=== PATIENT | female | born 2000 | race Caucasian/White ===

== ENCOUNTER 2024-12-17 12:56 | Emergency (ER) | payer OTHER ==
[~2024-12-17] VITALS: Ht 154.9 cm; Wt 52.3 kg
[2024-12-17] MEDS: ACETAMINOPHEN 325 MG TAB PO ONE (13:23)
[2024-12-17 13:39] LABS: BASO % 0.2 % (0.0-1.0); EOS % 0.2 % (0.0-3.0); HEMOGLOBIN 12.2 g/dl (12.0-15.5); LYMPH # 0.6 10^3/uL (1.5-5.0); LYMPH % 9.2 % (24.0-44.0); MEAN CORPUSCULAR HEMOGLOBIN 28.7 pg (27.0-33.0); MEAN CORPUSCULAR HGB CONC 33.9 g/dl (32.0-36.5); MEAN CORPUSCULAR VOLUME 84.7 fl (80.0-96.0); MONO # 0.4 10^3/uL (0.0-0.8); MONO % 5.6 % (2.0-8.0); NEUTROPHILS # 5.6 10^3/uL (1.5-8.5); PLATELET COUNT, AUTOMATED 214 10^3/uL (150-450); RED BLOOD COUNT 4.25 10^6/uL (4.00-5.40); WHITE BLOOD COUNT 6.7 10^3/uL (4.0-10.0)
[2024-12-17 14:05] LABS: CK-MB VALUE MASS < 1.0 NG/ML (<3.6)
[2024-12-17 14:08] LABS: ALBUMIN 3.5 G/DL (3.2-5.2); ALKALINE PHOSPHATASE 45 U/L (35-104); ALT/SGPT 14 U/L (7.0-40); AST/SGOT 21 U/L (<34); BILIRUBIN,DIRECT 0.5 MG/DL (<0.4); BILIRUBIN,TOTAL 1.3 MG/DL (0.3-1.2)
[2024-12-17 14:09] LABS: THYROID STIMULATING HORMONE 0.466 uIU/ML (0.55-4.78)
[2024-12-17 14:22] LABS: CPK CREATINE PHOSPHOKINASE 126 U/L (34-145); MB/CK RELATIVE INDEX 0.79 (< OR =4)
[2024-12-17] MEDS: NS (Normal Saline) 0.9% 1,000 ML IV ONE (14:48)
[2024-12-17] MEDS ORDERED: AMOX875T2 PO (16:33)
[2024-12-17] MEDS ORDERED: DOXY-442 PO (16:33)
[2024-12-17 16:43] VITALS: BP 108/76; TEMP 99.3; O2SAT 94
== END 2024-12-17 16:45 | disposition home or self-care (01) ==
LOC: M ED 12:56
DX: J18.9 Pneumonia, unspecified organism (principal); Z79.2 Long term (current) use of antibiotics